=== PATIENT | male | born 1985 | race Caucasian/White ===

== ENCOUNTER 2016-10-11 09:00 | Inpatient (IN) | payer MEDICAID ==
[~2016-10-11] VITALS: Ht 185.4 cm; Wt 77.1 kg
--- NOTE | ~2016-10-11 | PN ---
Unit #: [id number] #: [id number] Patient: RUSTAM CRUZ [id number] [facility] [address] [place] [address] [id number] MR#: [id number] NAME: RUSTAM CRUZ ROOM: P184 Age: 30 Sex: M Admission Date: 10/11/2016 : 1985 Attending Physician: Del Tanner M.D. Admitting Physician: Del Tanner M.D. Primary Care Physician: Primary Care Physician Julianne RENTERIA PROGRESS NOTES DATE 10/13/2016 DISCUSSION Rustam was seen yesterday by the nurse practitioner. He reports he is having active opiate withdrawal symptoms today including sweating, cramping, and some irritability. He is actively looking for long-term placement to the hospital and feels that he will be unable to maintain his safety and sobriety if discharged precipitously. ASSESSMENT Opiate dependence. PLAN Continue current treatment plan. Dictated by... Katie MoyerH/bzg TD: 10/19/2016 11:08 JOB #: [id number] [facility]EXTER PROGRESS NOTES Page 1 of 1 X Del Tanner MD PROGRESS NOTE
--- NOTE | ~2016-10-11 | PA ---
Unit #: [id number] #: [id number] Patient: RUSTAM CRUZ [id number] [facility] [address] [place] [address] [id number] I MR#: [id number] NAME: RUSTAM CRUZ ROOM: P184 Age: 30 Sex: M Admission Date: 10/11/2016 : 1985 Date of Assessment: Attending Physician: Del Tanner M.D. Admitting Physician: Del Tanner M.D. Primary Care Physician: Primary Care Physician No PSYCHIATRIC ASSESSMENT DATE OF SERVICE 10/12/2016. INFORMANTS The patient, lacho and lacho PABLO. CHIEF COMPLAINT Opioid dependence. HISTORY OF PRESENT ILLNESS Mr. Cruz is a 30-year-old man, who states that he has been using 2 to 2.5 grams of heroin daily for the past couple of years. He recently relocated to [place] from [place] and has limited support in the area. He says that he needs to get clean before he can contact support in his home state and reports he feels has been able to maintain a sober state outside of the hospital. He denied suicidal ideation, intent, or plan and was admitted for opioid detox and initiation of services. PAST PSYCHIATRIC HISTORY No previous treatment in [place]. He did not take current psychiatric medications. FAMILY PSYCHIATRIC HISTORY No reported family history of mental illness or substance abuse. SOCIAL HISTORY The patient is a heterosexual man, who is not currently in a relationship. He is an 11th grade graduate, who is unemployed and has not worked in 3 months. He is homeless and staying in the local retirement system. PAST MEDICAL HISTORY No chronic medical problems. MEDICATIONS None currently. ALLERGIES No known medication allergies. SUBSTANCE USE HISTORY As noted, the patient has been using 2 to 2.5 g of heroin on an IV basis. He reports previous history of alcohol abuse and experimentation with Unit #: [id number] #: [id number] Patient: RUSTAM CRUZ stimulants and cannabis. MENTAL STATUS EXAMINATION Rustam presented as a mildly disheveled man, who appeared his stated age. He was cooperative with the examination. His speech was spontaneous and easily understood. Musculoskeletal examination was calm. His mood was mildly depressed with a congruent affect. He was alert and fully oriented. Memory and concentration were intact. Thought processes were logical with no active psychosis. He denied suicidal ideation, intent, or plan. Insight and judgment, fair. Fund of knowledge and abstraction, fair. ASSETS AND LIABILITIES The patient knows local resources and presents voluntarily for treatment. Liabilities include problems maintaining sobriety, lack of support, and lack of stable housing and income. ADMITTING DIAGNOSES AXIS I: Opioid dependence with withdrawal, uncomplicated, F11.23. AXIS II: No diagnosis. AXIS III: Opioid withdrawal syndrome. AXIS IV: AXIS V: PSYCHIATRIC PLAN Rustam was admitted and placed on the opioid detox protocol. Physical examination and baseline laboratory studies will be ordered and reviewed and trazodone p.r.n. will be provided for insomnia. He will enroll in dual diagnosis groups and activities. TREATMENT GOALS Establishment of sobriety, improvement in insight, and improvement in coping skills. DISCHARGE PLANNING Follow up with 28-day program as requested by the patient. ESTIMATED LENGTH OF STAY 5 days. Dictated by... Katie Moyer/herber TD: 10/15/2016 13:32 JOB #: [id number] Unit #: [id number] #: [id number] Patient: RUSTAM CRUZ PSYCHIATRIC ASSESSMENT Page 1 of 1 X Del Tanner MD X PSYCHIATRIC ASSESSMENT
--- NOTE | ~2016-10-11 | PA ---
Unit #: [id number] #: [id number] Patient: [facility]UZ [id number] [facility] [address] [place] [address] [id number] I MR#: [id number] NAME: RUSTAM CRUZ ROOM: P184 Age: 30 Sex: M Admission Date: 10/11/2016 : 1985 Date of Assessment: Attending Physician: Del Tanner M.D. Admitting Physician: Del Tanner M.D. Primary Care Physician: Primary Care Physician No PSYCHIATRIC ASSESSMENT This patient was seen and assessed on 10/12/2016. DATE OF SERVICE 10/12/2016. INFORMANTS The patient, partially reliable; [facility], reliable. CHIEF COMPLAINT IV heroin use. HISTORY OF PRESENT ILLNESS Mr. Cruz is a 30-year-old male, who presented to [facility] with stating that he had been using 2 to 2.5 g of IV heroin daily for the past 4 years. He states that he was already experiencing mild detox symptoms upon assessment and that he has limited success when trying to quit using on his own. He reports that during those 4 years, he has only been able to stop use for a couple of days and that after detox at this facility that he wishes to return to his home state of [place] to live at that time. He denied any thoughts of suicidal or homicidal ideation at the time of the assessment. PAST PSYCHIATRIC HISTORY None. The patient denies. FAMILY PSYCHIATRIC HISTORY None reported. SOCIAL HISTORY The patient is a single heterosexual man, who reports that he is currently unemployed and has not worked in 3 months and that he has an 11th grade education. He is currently homeless and staying in shelters and that financially he cannot care for himself due to his addiction. PAST MEDICAL HISTORY Denies any major medical issues at this time. MEDICATIONS No home medications currently. ALLERGIES Reports no known allergies. Unit #: [id number] #: [id number] Patient: RUSTAM CRUZ SUBSTANCE ABUSE HISTORY The patient reports that he uses IV heroin. He denies using any other substance at this time. MENTAL STATUS EXAMINATION The patient presents as a casually dressed, mildly disheveled man, who appeared older than his stated age. His speech was with normal volume, tone, and was generally well coherent. His mood was slightly irritable with a congruent affect. He was alert and fully oriented. Memory and concentration were fair. His thought processes appeared logical and no overt symptoms of psychosis was noted. He denied auditory or visual hallucinations. He did not report any suicidal or homicidal ideations. Insight and judgment were fair and fund of knowledge and abstraction were fair. ASSETS AND LIABILITIES The patient knows local resources and presents voluntarily for treatment. Liabilities include financial issues and lack of social support and stable housing. ADMITTING DIAGNOSES AXIS I: Opioid use disorder. AXIS II: Deferred. AXIS III: None. AXIS IV: AXIS V: PSYCHIATRIC PLAN The patient was admitted and placed on opioid detox protocol. He will enroll in dual diagnosis groups and activities, and a physical examination and baseline laboratory studies will be ordered and reviewed. TREATMENT GOALS Establishment of sobriety, improvement in insight, and improvement in coping skills. DISCHARGE PLANNING He will follow up with [facility]. ESTIMATED LENGTH OF STAY 5 days. Dictated by... Heidi Sanz APRN for Katie Moyer/herber TD: 10/16/2016 05:06 JOB #: [id number] Unit #: [id number] #: [id number] Patient: RUSTAM CRUZ PSYCHIATRIC ASSESSMENT Page 1 of 1 X HEIDI SANZ PSYCHIATRIC ASSESSMENT
--- NOTE | ~2016-10-11 | PN ---
Unit #: [id number] #: [id number] Patient: RUSTAM CRUZ [id number] [facility] [address] [place] [address] [id number] I MR#: [id number] NAME: RUSTAM CRUZ ROOM: P184 Age: 30 Sex: M Admission Date: 10/11/2016 : 1985 Attending Physician: Del Tanner M.D. Admitting Physician: Del Tanner M.D. Primary Care Physician: Primary Care Physician Julianne RENTERIA PROGRESS NOTES DATE 10/14/2016 DISCUSSION Ms. Cruz continues to have detox symptoms today although they are improved. He continues to be very anxious about his outpatient placement, and knows the referrals have been sent to local 28-day programs with no response yet. I did remind him that it is the holiday weekend and that he should await further word from his social research assistant. He is cooperating in groups and activities and has no suicidal ideation. ASSESSMENT Opiate dependence. PLAN Continue current treatment plan. Dictated by... Del Tanner M.D. ROGERIO/obdulio TD: 10/19/2016 11:28 JOB #: [id number] [facility] PROGRESS NOTES Page 1 of 1 X Del Tanner MD X PROGRESS NOTE
--- NOTE | ~2016-10-11 | DS ---
Unit #: [id number] #: [id number] Patient: RUSTAM CRUZ [id number] [facility] [address] [place] [address] [id number] MR#: [id number] NAME: RUSTAM CRUZ ROOM: 84 Age: 30 Sex: M Admission Date: 10/11/2016 : 1985 Discharge Date: 10/16/2016 Attending Physician: Del Tanner M.D. Primary Care Physician: Primary Care Physician No DISCHARGE SUMMARY REASON FOR ADMISSION Rustam is a 41-year-old man, who reported that he has been using increasing amounts of heroin and is unable to stop. He had active detox symptomatology and says that he was "dropped off by my drug dealer" for admission. DIAGNOSTIC STUDIES Laboratory data, the patient has a history of hepatitis C. HOSPITAL COURSE The patient was admitted and placed on opiate detox protocol. He tolerated this well and had several days of active detox symptoms. He denied any suicidal ideation, intent, or plan during the hospitalization, but did report that he felt like he was "not going to make it," if he was not admitted to a long-term care facility, fortunately, he was able to obtain placement in such a facility and on the date of discharge, he was picked up by their transportation for direct transfer to [facility]. DISCHARGE DIAGNOSES [place] I Opiate dependence withdrawal, uncomplicated, F1.23. [place] II No diagnosis. [place] III History of hepatitis C. [place] IV [place] V INSTRUCTIONS TO PATIENT Follow up with long-term care facility. DISCHARGE MEDICATIONS None. CONDITION AT DISCHARGE Fair. PROGNOSIS Fair. DIET AND ACTIVITY Ad pierre. Unit #: [id number] #: [id number] Patient: RUSTAM CRUZ Dictated by... Katie Moyer/annalise TD: 10/21/2016 06:52 JOB #: [id number] DISCHARGE SUMMARY Page 1 of 1 X Del Tanner MD X DISCHARGE SUMMARY
--- NOTE | ~2016-10-11 | HP ---
Unit #: [id number] #: [id number] Patient: RUSTAM CRUZ [id number] [facility] [address] [place] [address] [id number] I MR#: [id number] NAME: RUSTAM CRUZ ROOM: [facility] Age: 30 Sex: M Admission Date: 10/11/2016 : 1985 Attending Physician: Del Tanner M.D. Admitting Physician: Del Tanner M.D. Primary Care Physician: Primary Care Physician No HISTORY AND PHYSICAL HISTORY OF PRESENT ILLNESS Rustam is a 30 year old admitted to [facility] because of his illicit substance abuse which includes heroin. PAST MEDICAL HISTORY Long history of illicit substance abuse to include IV heroin. PAST SURGICAL HISTORY Nothing reported. ALLERGIES No known drug allergies. SOCIAL HISTORY Smokes 1 pack per day. Drinks alcohol rarely. Admits to a long history of opioid abuse to include IV heroin. FAMILY HISTORY Medically noncontributory. REVIEW OF SYSTEMS CONSTITUTIONAL: No fever or chills. HEENT: Denies any sore throat, ear pain or runny nose. CARDIOVASCULAR: Denies chest pain, irregular heart rhythm or palpitations. CHEST: Denies shortness of breath or cough. No hemoptysis. GASTROINTESTINAL: Denies nausea, vomiting, diarrhea or chronic constipation. ENDOCRINE: Denies history of increased thirst or urination. No recent significant weight loss or gain. GENITOURINARY: Denies dysuria, frequency, or hematuria. SKIN: Denies any rashes. HEMATOLOGIC: Denies history of increased bleeding or bruising. MUSCULOSKELETAL: Denies any hot, swollen joints. No generalized muscle pain. NEUROLOGIC: Denies problems with vision or speech. No frequent, severe headaches. No numbness, tingling or weakness in any extremities. Denies loss of bladder or bowel control. CURRENT MEDICATIONS Detox protocol. PHYSICAL EXAMINATION GENERAL: Alert, well-nourished, in no apparent distress. Unit #: [id number] #: [id number] Patient: RUSTAM CRUZ VITAL SIGNS: Blood pressure 120/76, heart rate 80, respirations 16, temperature 98.6. WEIGHT: 170. HEIGHT: 6 feet 1 inch. SKIN: Warm and dry without rash or lesion. HEENT: Normocephalic. TMs not viewed. Oral and nasal passages clear. Conjunctivae clear. PERRLA. EOMs intact. NECK: Supple without lymphadenopathy or thyromegaly. HEART: Regular rate and rhythm without murmur. LUNGS: Clear. ABDOMEN: Soft, nontender. : Not done. EXTREMITIES: No evidence of cyanosis, clubbing or edema. Moves all without focal deficit. NEUROLOGICAL: Grossly within normal limits. Cranial Nerves: II: Visual ramírez are intact. III, IV AND : Extraocular movements are intact. Pupils are equal, round and reactive to light. V: Facial sensation is grossly normal. VII: Facial movements and expression are normal. VIII: Auditory acuity grossly intact. IX, X: Uvula is midline. Phonation is normal. XI: Patient shrugs shoulders and turns head normally. XII: Tongue protrudes in the midline. Sensory and Motor Function: Sensory and motor sensation is grossly normal. Motor: moves all extremities well. Coordination: Gait is normal. Deep Tendon Reflexes: Intact. IMPRESSION Psychiatric admission. RECOMMENDATIONS PSYCHIATRIC: Per psychiatrist. MEDICAL: See no contraindication to participate in facility's activities. MEDICAL PROGNOSIS Good. MEDICAL CONDITION Stable. Dictated by... Beatriz Chavarria P.A.-C. for Katie Foy/dhiraj TD: 10/11/2016 21:13 JOB #: [id number] Unit #: [id number] #: [id number] Patient: RUSTAM CRUZ HISTORY AND PHYSICAL Page 1 of 1 X Beatriz Chavarria HISTORY AND PHYSICAL
--- NOTE | ~2016-10-11 | PN ---
Unit #: [id number] #: [id number] Patient: RUSTAM CRUZ [id number] [facility] [address] [place] [address] [id number] MR#: [id number] NAME: RUSTAM CRUZ ROOM: P184 Age: 30 Sex: M Admission Date: 10/11/2016 : 1985 Attending Physician: Del Tanner M.D. Admitting Physician: Del Tanner M.D. Primary Care Physician: Primary Care Physician Julianne RENTERIA PROGRESS NOTES DATE 10/15/2016 DISCUSSION Rustam has been accepted to a long-term care program in the area, and his detox appears reduced today. He is pleasant in mood with a brighter affect. He is alert and fully oriented with no psychosis. ASSESSMENT Opiate dependence. PLAN Anticipate discharge soon to long-term care facility. Dictated by... Del Tanner M.D. MRH/bzg TD: 10/19/2016 11:53 JOB #: [id number] [facility] PROGRESS NOTES Page 1 of 1 X Del Tanner MD X PROGRESS NOTE
--- NOTE | ~2016-10-11 | A ---
[facility] Nutrition Therapy DATE: 10/12/16 Patient: RUSTAM CRUZ Physician: KRISTINA Address: NO PERMANENT ADDRESS Room/Bed: [address], Zip: [place] [address] Admit Date: 10/11/16 Date of : [birth year] Height: 6 1 Weight: [phone] NUTRITIONAL ASSESSMENT: REASON: 1 pt malnutrition risk score re: unintentional weight loss Admitting dx: 30 y/o male admitted for heroin detox PMH: IVDA, 1 ppd smoker, rarely drinks ETOH Anthropometrics: Ht: 73", Wt: 170 lbs, BMI: 22 (normal), past wts: 165-175 lbs Labs: None available Meds: detox protocol vitamins, bowel regimen, phenergan/zofran, Desyrel I/O & Bowel function: No issues Assessment: Patient is undergoing heroin detox with mild detox sx. He is unemployed and homeless and has been staying in shelters. He reports poor appetite upon admission yesterday and 20 lb weight loss in "months," however this loss is not reflected in past weights. He is on a regular diet with no caffeine. Suspected PO intake will be good after detox by providing 3 meals/day + snacks and he should be able to maintain his weight. See RD recs below. Dx: Unintentional weight loss r/t drug abuse AEB 1 point malnutrition risk score, pt reports 20 lb weight loss in months. Intervention: See recs below Monitoring, Evaluation and Goals: 1. PO intake > 50% of meals. 2. Weight stabilization/prevent further loss. Monitor: per consult Recommendations: 1. Continue regular diet, no caffeine per MD. Encourage adequate PO/fluid intake. 2. Provide snacks prn. If PO intake is < 50% of meals consider ordering Ensure Plus BID. 3. Please weigh q 3 days for monitoring purposes given reported weight loss. [facility] Nutrition Therapy DATE: 10/12/16 Patient: RUSTAM CRUZ Physician: KRISTINA Address: NO PERMANENT ADDRESS Room/Bed: [address], Zip: [place] [address] Admit Date: 10/11/16 Date of : [birth year] Height: 6 1 Weight: [phone]. Please consult RD with any further nutritional needs. Mild nutrition risk Respectfully, Blanca Wheeler, [place], LD [facility] cc: client file
[~2016-10-11 09:00] MED LIST: ALBUTEROL17 GM INH; BACTRIM DS TABL1 TA1 PO; MOTRIN600 M2 PO; NO MEDICATIONS; PREDNISONE PO; ZITHROMAX PO
[2016-10-12 12:37] LABS: BASOPHIL% 0.5 % (0-2.5); EOSINOPHIL# 0.2 X10e3 (0-0.7); EOSINOPHIL% 2.9 % (0.0-7.0); HEMATOCRIT 43.7 % (38.0-50.0); HEMOGLOBIN 14.6 gm/dL (13.0-16.0); LYMPHOCYTE# 1.4 X10e3 (1.0-3.5); LYMPHOCYTE% 17.5 % (17.0-45.0); MEAN CELL VOLUME 87.6 FL (83-96); MEAN CORPUSCULAR HEMOGLOBIN 29.3 PG (28-34); MEAN CORPUSCULAR HGB CONC 33.4 g/dL (30-36); MEAN PLATELET VOLUME 8.7 FL (6.5-11.5); MONOCYTE# 0.6 X10e3 (0-1.0); MONOCYTE% 7.9 % (3.0-12.0); NEUTROPHIL# 5.6 X10e3 (1.5-7.1); NEUTROPHIL% 71.2 % (40-75); PLATELET COUNT 172 X10e3 (140-420); RED BLOOD COUNT 4.99 X10e (3.90-5.60); RED CELL DISTRIBUTION WIDTH 17.7 % (11.0-15.5); WHITE BLOOD COUNT 7.8 X10e3 (4.0-10.5)
[2016-10-12 12:45] LABS: ALBUMIN SERUM 3.7 g/dL (3.5-5.0); BILIRUBIN,TOTAL 0.7 mg/dL (0.2-2.0); BUN/CREATININE RATIO 23.75; CALCIUM SERUM 8.9 mg/dL (8.4-10.2); CREATININE SERUM 0.8 mg/dL (0.6-1.4); GLOM FILT RATE Estimated 118.2 mL/min (>60); POTASSIUM 4.1 mmol/L (3.5-5.1); PROTEIN TOTAL SERUM 6.3 g/dL (6.0-8.3)
[2016-10-12 12:46] LABS: DIFF IND NO
[2016-10-16 21:13] LABS: HA AB IGM (HEPPAN) Nonreactive (()); HB CORE AB IGM (HEPPAN) Nonreactive (Nonreactive); HB S AG (HEPPAN) Nonreactive (Nonreactive); HEP C AB (HEPPAN) Reactive (Nonreactive)
== END 2016-10-16 10:35 | DRG 897 ==
LOC: P1E 11:01
PROVIDERS: Psychiatry & Neurology Psychiatry
PROC: HZ2ZZZZ Detoxification Services for Substance Abuse Treatment (ICD-10-PCS; principal; 2016-10-12)
DX: F11.23 Opioid dependence with withdrawal (principal); F17.210 Nicotine dependence, cigarettes, uncomplicated
CPT/HCPCS: 80053; 80074; 85025; 86592; 87522; 87806; J2550